=== PATIENT | female | born 1985 | race Caucasian/White ===

== ENCOUNTER → 2017-01-24 | Outpatient (CLI) | payer BC, OTHER ==
[~2017-01-24] MED LIST: CLR10 PO; LEVO25TA5 PO; MISC-696; MTR600X PO; OXYC-57 PO; PRENTAB26 PO
[2017-01-24 12:42] LABS: HEMATOCRIT 33.6 % (37-47)
[2017-01-24 13:31] LABS: THYROID STIMULATING HORMONE 1.1 uIu/ml (0.300-4.500)
[2017-01-24 13:50] LABS: GTGD 50 Grams
== END | disposition home or self-care (01) ==
LOC: C.LAB1850 11:01
PROVIDERS: ATTEND Obstetrics & Gynecology
DX: O99.280 Endocrine, nutritional and metabolic diseases complicating pregnancy, unspecified trimester (principal); O09.90 Supervision of high risk pregnancy, unspecified, unspecified trimester

== ENCOUNTER → 2017-01-24 | Outpatient (CLI) | payer BC, OTHER ==
[2017-01-24 15:18] LABS: URINE APPEARANCE CLEAR (CLEAR); URINE BILIRUBIN NEG (NEG); URINE COLOR YELLOW; URINE EPITHELIAL CELL AUTO >30 /lpf (0-5); URINE NITRITE NEG (NEG); URINE PH 7.5 (4.5-7.5); UROBILINOGEN NEG (NEG)
[2017-01-24 15:20] LABS: MANUAL MICROSCOPIC REQUIRED? NO; REVIEW REQ? NO
== END | disposition home or self-care (01) ==
LOC: C.LABSPEC 14:02
PROVIDERS: ATTEND Obstetrics & Gynecology
DX: O09.90 Supervision of high risk pregnancy, unspecified, unspecified trimester (principal)

== ENCOUNTER → 2017-01-30 | Outpatient (CLI) | payer BC, OTHER | END | disposition home or self-care (01) | LOC: C.LAB1850 09:27 | PROVIDERS: ATTEND Obstetrics & Gynecology | DX: O28.9 Unspecified abnormal findings on antenatal screening of mother (principal) ==

== ENCOUNTER → 2017-02-21 | Outpatient (CLI) | payer BC, OTHER ==
[2017-02-21 18:32] LABS: THYROID STIMULATING HORMONE 1.03 uIu/ml (0.300-4.500)
== END | disposition home or self-care (01) ==
LOC: C.LAB1850 16:46
PROVIDERS: ATTEND Obstetrics & Gynecology
DX: O99.280 Endocrine, nutritional and metabolic diseases complicating pregnancy, unspecified trimester (principal); Z3A.00 Weeks of gestation of pregnancy not specified

== ENCOUNTER → 2017-03-21 | Outpatient (CLI) | payer BC, OTHER | END | disposition home or self-care (01) | LOC: C.LABSPEC 17:39 | PROVIDERS: ATTEND Obstetrics & Gynecology | DX: O09.90 Supervision of high risk pregnancy, unspecified, unspecified trimester (principal) ==

== ENCOUNTER 2017-04-04 04:25 | Inpatient (IN) | payer BC, OTHER ==
[~2017-04-04] VITALS: Ht 160 cm; Wt 100.5 kg
[2017-04-04] VITALS (18 sets, daily range): BP systolic 98–110; BP diastolic 58–78; PULSE 75–94; TEMP 36.5–36.7; O2SAT 97–100; Ht 160 cm; Wt 100.5 kg
[2017-04-04] MEDS ORDERED: LACTATED RINGER'S 1000ML 1,000 ML IV ONE (04:37)
[2017-04-04] MEDS ORDERED: LACTATED RINGER'S 1000ML 1,000 ML IV PRN (04:37)
[2017-04-04] MEDS ORDERED: LACTATED RINGER'S 1000ML 1,000 ML IV SCH ×2 (04:37→06:46)
[2017-04-04] MEDS ORDERED: CITRIC ACID/SODIUM CITRATE 15 ML UDC PO ONE (04:45)
[2017-04-04 04:58] LABS: HEMATOCRIT 32.9 % (37-47); MEAN CELL VOLUME 89.4 fL (80-100); MEAN CORPUSCULAR HEMOGLOBIN 31.3 pg (25-34); MEAN PLATELET VOLUME 10.3 fL (7.4-10.4); PLATELET COUNT 232 K/uL (130-400); RED BLOOD COUNT 3.68 M/uL (4.2-5.4); WHITE BLOOD COUNT 13.17 K/uL (4.8-10.8)
[2017-04-04] MEDS ORDERED: FENTANYL CITRATE INJ 50 MCG/1 ML 2 ML VIAL ONE (05:02)
[2017-04-04] MEDS ORDERED: MoRPHine SULFATE PF 1 MG/ML 10 ML AMP/VIAL ONE (05:02)
--- NOTE | 2017-04-04 05:03 | History & Physical Bridge Note ---
H&P Re-Evaluation Bridge Note: I have examined the patient, reviewed the History & Physical and in the interval since the performance of the History & Physical I have noted the following changes of clinical significance: No changes noted. H&P dictated.
[2017-04-04] MEDS ORDERED: CEFAZOLIN IV 2,000 MG in DEXTROSE 5% 50ML 50 ML IV STA (05:06)
[2017-04-04] MEDS ORDERED: LEVO25TA5 PO (05:09)
[2017-04-04] MEDS ORDERED: CLR10 PO (05:09)
[2017-04-04] MEDS ORDERED: PRENTAB26 PO (05:09)
[2017-04-04] MEDS ORDERED: OXYTOCIN INJ 10 UNITS/ML VIAL ONE ×3 (05:14→05:59)
[2017-04-04] MEDS ORDERED: EpHEDrine SULFATE INJ 50 MG/ML AMP ONE (05:14)
[2017-04-04] MEDS ORDERED: EpHEDrine SULFATE INJ 50 MG/ML AMP IV PRN (05:30)
[2017-04-04] MEDS ORDERED: ONDANSETRON INJ 2 MG/ML 2 ML VIAL IV PRN ×3 (05:30→23:30)
[2017-04-04] MEDS ORDERED: ACETAMINOPHEN 1000 MG/100 ML IV IV ONE (05:30)
[2017-04-04] MEDS ORDERED: ATROPINE SULFATE 0.1 MG/ML 5ML SYR IV PRN (05:30)
[2017-04-04] MEDS ORDERED: METHYLERGONOVINE MALEATE 0.2 MG/ML AMP ONE (06:00)
[2017-04-04] MEDS ORDERED: DiphenhydrAMINE HCL 50 MG/ML VIAL ONE (06:44)
--- NOTE | 2017-04-04 06:45 | [facility] Post Operative Brief Note ---
Immediate Operative Summary Operative Date Apr 04, 2017. Pre-Operative Diagnosis Term ; History of Section times three; Spontaneous labor Post-Operative Diagnosis Term ; History of Section times three; Spontaneous labor Procedure(s) Performed Repeat Section for delivery of live male child at 0557 Surgeon Printing Supplies Sales Representative Surgeon(s) Dr. Hoover Estimated Blood Loss 700cc Findings Viable male , cephalic presentation. Apgars 9/10. Weight 7#12. Normal appearing uterus, tubes, ovaries. Adhesions of peritoneum to uterus. Specimens Placenta (Hold) Cord Blood Cord Gases Drains espinoza, clear yellow Anesthesia spinal Complication(s) None Disposition L&D
[2017-04-04] MEDS ORDERED: OXYTOCIN INJ 30 UNITS in LACTATED RINGER'S 1000ML 1,000 ML IV SCH (06:46)
[2017-04-04] MEDS ORDERED: LANOLIN OINT EXT PRN ×2 (07:00)
[2017-04-04] MEDS ORDERED: BENZOCAINE 20% AER SPR 82.5 GM CAN EXT PRN (07:00)
[2017-04-04] MEDS ORDERED: SUPERCREAM 0.870 % 15GM JAR EXT PRN (07:00)
[2017-04-04] MEDS ORDERED: HYDROCORTISONE ACETATE 25 MG SUPP PR PRN (07:00)
[2017-04-04] MEDS ORDERED: MAGNESIUM HYDROXIDE SUSP 30 ML UDC PO PRN (07:00)
[2017-04-04] MEDS ORDERED: NALOXONE HCL INJ 0.08 MG in SYRINGE 1.8 ML IV PRN (07:05)
[2017-04-04] MEDS ORDERED: NALOXONE HCL INJ 1 MG in SODIUM CHLORIDE 0.9% 1000ML 1,000 ML IV PRN (07:05)
[2017-04-04] MEDS ORDERED: SODIUM CHLORIDE 0.9% 1000ML 1,000 ML IV PRN (07:05)
[2017-04-04] MEDS ORDERED: LACTATED RINGER'S 1000ML 500 ML IV PRN (07:05)
[2017-04-04] MEDS ORDERED: NO NARCOTICS OR SEDATIVES SCH (07:15)
[2017-04-04] MEDS ORDERED: MEPERIDINE HCL 25 MG/ML CARP IV PRN (07:15)
[2017-04-04] MEDS ORDERED: PROMETHAZINE HCL INJ 25 MG in SODIUM CHLORIDE 0.9% 50ML 50 ML IV PRN ×2 (07:15→23:30)
[2017-04-04] MEDS ORDERED: MoRPHine SULFATE PF 1 MG/ML 10 ML AMP/VIAL EPI PRN (07:15)
[2017-04-04] MEDS ORDERED: DiphenhydrAMINE HCL 50 MG/ML VIAL IV PRN ×2 (07:15→23:30)
[2017-04-04] MEDS ORDERED: NALBUPHINE HCL INJ 10 MG/ML AMP IV PRN (07:15)
[2017-04-04] MEDS ORDERED: NALOXONE HCL 0.4 MG/1 ML VIAL/CARP IV PRN (07:15)
--- NOTE | 2017-04-04 07:23 | Anesthesiology Progress Note ---
Anesthesia Post Op Note Date & Time Apr 04, 2017 at 07:22 Notes Mental Status: alert / awake / arousable, participated in evaluation Pt Amnestic to Procedure: Yes Nausea / Vomiting: adequately controlled Pain: adequately controlled Airway Patency, RR, SpO2: stable & adequate BP & HR: stable & adequate Hydration State: stable & adequate Neuraxial Anesthesia: was administered, sensory block is resolving Anesthetic Complications: no major complications apparent
--- NOTE | 2017-04-04 08:04 | HISTORY & PHYSICAL EXAMINATION ---
DATE OF ADMISSION: 04/04/2017 CHIEF COMPLAINT: Spontaneous labor. HISTORY OF PRESENT ILLNESS: The patient is a 31-year-old G4, P3-0-0-3 at 38 weeks 3 days, who presented after a large gush of clear fluid and contractions approximately every 8 minutes, per patient. Positive movement, no vaginal bleeding. complicated by a history of section x3, hypothyroidism, Rh negative status, group B strep carrier. PAST MEDICAL HISTORY: Migraines, depression, no medication, hypothyroidism and seasonal and environmental allergies. PAST SURGICAL HISTORY: 1. section x3. 2. Laparoscopy noting bowel and colon were adhered 3. Cholecystectomy. SOCIAL HISTORY: Denies tobacco, alcohol and drug use. REVIEW OF SYSTEMS: Negative, except as discussed above. FAMILY HISTORY: Noncontributory. MEDICATIONS: 1. Levothyroxine 25 mcg. 2. vitamins 3. Loratadine 10 mg. 4. Albuterol as needed. 5. Folic acid. 6. Vitamin D. ALLERGIES: ADVAIR DISKUS AND PENICILLIN, BOTH CAUSING A RASH. PHYSICAL EXAMINATION: VITAL SIGNS: Stable, afebrile. GENERAL: Awake, alert and oriented x3, no acute distress. HEART: Regular rate rhythm, S1, S2, no murmurs, gallops or rubs. LUNGS: Clear to auscultation bilaterally. ABDOMEN: Gravid, soft, nontender to palpation. EXTREMITIES: No edema, no calf tenderness. STERILE VAGINAL EXAM: Cervix is 4 cm dilated, 70% effaced, -1 station. heart tracing category 1. LABORATORY DATA: Blood type O-negative with negative antibodies, rubella immune, VDRL nonreactive, hepatitis B and HIV negative. Gonorrhea and chlamydia negative. Anatomy complete, cell-free DNA screening negative. One-hour glucose test 137 with 2-hour test normal negative. Group B strep positive. ASSESSMENT: 1. A 31-year-old G4, P3-0-0-3 at 38 weeks and 3 days. 2. Spontaneous labor. 3. History of section x3. PLAN: We will prepare patient for repeat section.
[2017-04-04] MEDS: SIMETHICONE 80 MG CHEW PO SCH ×4 (09:00→19:38)
[2017-04-04] MEDS ORDERED: KETOROLAC TROMETHAMINE 30 MG/ML VIAL IV STA (09:48)
--- NOTE | 2017-04-04 09:52 | OPERATIVE REPORT ---
DATE OF OPERATION: 04/04/2017 PREOPERATIVE DIAGNOSES: 1. 38-week gestation. 2. History of section x3. 3. Spontaneous labor with spontaneous rupture of membranes. 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 PROCEDURE: Repeat low transverse section. SURGEON: Gabby Rodriguez DO. MATERIALS HANDLER: Emmy Hoover MD. ESTIMATED BLOOD LOSS: 700 mL FINDINGS: Viable male in a cephalic presentation, Apgars 9 and 10, weight 7 pounds 12 ounces. Normal-appearing uterus, tubes and ovaries. Adhesions in the peritoneum to uterus. SPECIMENS: Placenta, cord blood and cord gases. DRAINS: Velez, clear yellow. ANESTHESIA: Spinal. COMPLICATIONS: None. DISPOSITION: Stable and good to labor and delivery. INDICATIONS FOR PROCEDURE: The patient is a 31-year-old G4, P 3-0-0-3, at 38+ weeks' gestation, who presented in spontaneous labor. Her previous cervical exam in the office was 1 cm of dilation and on arrival she was feeling regular contractions plus had large gush of clear fluid with positive Nitrazine testing and cervical dilation to 4 cm. She was recommended for section. Informed consent was discussed and obtained, and the patient elected to proceed with section. DESCRIPTION OF PROCEDURE: The patient was taken to the operating room where spinal anesthesia was administered, 2 g of Ancef was infused preoperatively. She was prepared and draped in the usual sterile fashion in the supine position with a leftward tilt. Timeout was confirmed. The Pfannenstiel incision was made with a scalpel and carried through to the underlying layer of the fascia with both sharp and blunt and cautery dissection. The fascia was nicked at midline with the Bovie, and using Bovie over hemostat technique, this incision was extended bilaterally. The superior aspect of the fascial incision was grasped with Tawnya clamps x2, elevated off the underlying rectus abdominis muscles and dissected. In a similar fashion, the inferior aspect of the incision was also dissected. The rectus abdominis muscles were scored with the Bovie and . The peritoneum was entered with a hemostat and this incision was extended both bluntly and with Bovie dissection. The bladder blade was placed. Adhesions were noted from the peritoneum to the uterus. These were taken down with Metzenbaum scissors and the bladder flap was created. The uterine incision was made with a scalpel and extended cephalad-caudad manually. The was delivered from a cephalic presentation, nuchal cord x1 easily reduced. The head delivered, followed by the anterior followed by the posterior shoulders. A spontaneous cry was heard in the field. The cord was doubly clamped and cut, and the baby was handed to the awaiting semiconductor lab technician. A cord segment was obtained. Cord blood was obtained. The placenta was delivered spontaneously intact with a 3-vessel cord. During delivery of the placenta, the uterus incidentally inverted, this was easily reduced. Pitocin was given due to uterine atony. Methergine was given directly into the myometrium of the uterus. The uterus then became firm. The hysterotomy incision was reapproximated with 0 Vicryl in a running locked stitch, a second layer of the same suture was used to imbricate the hysterotomy incision. The uterus was returned to the abdomen. [id number] sutures of 2-0 Vicryl were used at the hysterotomy site to obtain excellent hemostasis and a small piece of Gelfoam was used to further aid in hemostasis. Excellent hemostasis was then observed. The fascial incision was reapproximated with 0 Vicryl in a running stitch. Two layers of 2-0 plain gut suture were used to reapproximate the subcutaneous tissue and then the skin was reapproximated using 4-0 Vicryl in a subcuticular running stitch. Steri-Strips and dressing were applied. The patient was then taken back to her room in stable and good condition. I attest to the content of the Intraoperative Record and any orders documented therein. Any exception s are noted below.
[2017-04-04] MEDS: LEVOTHYROXINE 25 MCG TAB PO SCH (10:47)
[2017-04-04] MEDS: DOCUSATE SODIUM 100 MG CAP PO SCH ×2 (12:34→19:38)
[2017-04-04] MEDS: LORATADINE 10 MG TAB PO SCH (12:35)
[2017-04-04] MEDS ORDERED: OXYCODONE/ACETAMINOPHEN 5-325 TAB PO PRN (23:30)
[2017-04-04] MEDS ORDERED: KETOROLAC TROMETHAMINE 30 MG/ML VIAL IV. PRN (23:30)
[2017-04-04] MEDS ORDERED: DC INTRASPINAL MORPHINE ONE (23:30)
[2017-04-05] MEDS: IBUPROFEN 600 MG TAB PO PRN ×3 (00:39→19:35)
[2017-04-05] MEDS: OXYCODONE/ACETAMINOPHEN 5-325 TAB PO PRN ×4 (00:39→19:35)
[2017-04-05 03:00] VITALS: BP 105/67; PULSE 79; TEMP 36.6; O2SAT 98
--- NOTE | 2017-04-05 06:31 | OB/GYN Progress Note ---
INORGANIC CHEMIST Progress Note Date of Service Apr 05, 2017. Subjective conversation w/ patient, physical exam, chart review, lab review Ambulation: ambulating normally Voiding: no voiding problems Passing Gas: Yes Diet Tolerance: Regular Diet Lochia: Small Feeding Type: Breast Feeding Pain: mild pain Review of Systems Constitutional: No fever Respiratory: No shortness of breath Cardiac: No chest pain Abdomen: No nausea, No vomiting Female : No dysuria Objective Vital Signs Date Time Temp Pulse Resp B/P (MAP) Pulse Ox O2 Delivery O2 Flow Rate FiO2 04/05/17 03:00 36.6 79 20 105/67 (80) 98 Room Air 04/04/17 23:45 99 Room Air 04/04/17 23:45 36.6 94 18 103/71 (82) 99 Room Air 04/04/17 23:45 18 99 04/04/17 22:30 18 100 04/04/17 21:30 18 100 04/04/17 20:30 16 98 04/04/17 20:15 36.7 90 18 108/58 (75) 98 Room Air 04/04/17 19:30 18 99 04/04/17 18:30 18 100 04/04/17 17:30 16 98 04/04/17 16:30 18 98 04/04/17 15:45 97 Room Air 04/04/17 15:45 36.6 77 16 98/66 (77) 97 Room Air 04/04/17 15:30 16 97 04/04/17 14:30 20 97 04/04/17 13:30 20 98 04/04/17 12:30 16 97 04/04/17 12:00 36.6 80 20 110/75 (87) 97 Room Air 04/04/17 11:30 20 97 04/04/17 10:30 20 100 04/04/17 10:30 36.7 78 22 103/78 (86) 99 Room Air 04/04/17 09:30 100 Room Air 04/04/17 09:30 20 100 04/04/17 09:30 36.5 75 20 109/67 (81) 100 Room Air 04/04/17 09:30 100 Room Air Physical Exam General Appearance: WELL-APPEARING Respiratory/Chest: lungs clear, normal breath sounds, no respiratory distress Cardiovascular: regular rate, rhythm Abdomen: normal bowel sounds, non tender, soft Fundus: Firm, Relation to Umbilicus (2 below U) Incision Description: Clean, Dry & Intact Extremities: non-tender, no pedal edema Laboratory Results Last 24 Hours Test 04/05/17 06:16 Medications Current Inpatient Medications Medications (Trade) Dose Ordered Sig/Tu Route Start Time Stop Time Status Last Admin Dose Admin Lactated Ringer's 1,000 ml @ 125 mls/hr Q8H IV 04/04/17 04:37 04/06/17 04:36 04/04/17 15:35 125 MLS/HR Lactated Ringer's 1,000 ml @ 999 mls/hr Q1H1M PRN IV 04/04/17 04:37 05/04/17 04:36 Levothyroxine Sodium (Synthroid Tab) 25 mcg DAILYBB PO 04/04/17 07:30 05/04/17 07:29 04/04/17 10:47 25 MCG Loratadine (Claritin Tab) 10 mg DAILY PO 04/04/17 08:00 05/04/17 07:59 04/04/17 12:35 10 MG Oxytocin 30 units/ Lactated Ringer's 1,003 ml @ 125 mls/hr Q8H2M IV 04/04/17 06:46 05/04/17 06:45 04/04/17 07:12 125 MLS/HR Lactated Ringer's 1,000 ml @ 125 mls/hr Q8H IV 04/04/17 06:46 05/04/17 06:45 Ketorolac Tromethamine (Toradol Inj) 30 mg Q6H PRN IV. 04/04/17 23:30 04/09/17 23:29 Oxycodone/ Acetaminophen (Percocet 5-325mg Tab) 1 tab Q4H PRN PO 04/04/17 23:30 04/18/17 23:29 04/05/17 00:39 1 TAB Oxycodone/ Acetaminophen (Percocet 5-325mg Tab) 2 tab Q4H PRN PO 04/04/17 23:30 04/18/17 23:29 Ibuprofen (Motrin Tab) 600 mg Q4H PRN PO 04/04/17 07:00 05/04/17 06:59 04/05/17 00:39 600 MG Promethazine HCl 25 mg/Sodium Chloride 51 ml @ 204 mls/hr Q4H PRN IV 04/04/17 23:30 05/04/17 23:29 Ondansetron HCl (Zofran Inj) 4 mg Q4H PRN IV 04/04/17 23:30 05/04/17 23:29 Bisacodyl (Dulcolax Tab) 5 mg HS ONCE PO 04/05/17 22:00 04/05/17 22:01 Bisacodyl (Dulcolax Supp) 10 mg PRN PRN [place] 04/06/17 07:00 05/06/17 06:59 Docusate Sodium (coLACE CAP) 100 mg BID PO 04/04/17 08:00 05/04/17 07:59 04/04/17 19:38 100 MG Magnesium Hydroxide (Milk Of Magnesia Susp) 30 ml HS PRN PO 04/04/17 07:00 05/04/17 06:59 Cocaine HCl (Supercream 0.870% Cr) BID PRN EXT 04/04/17 07:00 04/18/17 06:59 Lanolin (Lanolin Oint) PRN PRN EXT 04/04/17 07:00 05/04/17 06:59 Hydrocortisone Acetate (Anusol Hc Supp) 25 mg BID PRN [place] 04/04/17 07:00 05/04/17 06:59 Benzocaine (Dermoplast Aero Spr) 1 appln PRN PRN EXT 04/04/17 07:00 05/04/17 06:59 Simethicone (Mylicon Chew Tab) 80 mg QID PO 04/04/17 09:00 05/04/17 08:59 04/04/17 19:38 80 MG Diphenhydramine HCl (Benadryl Cap) 25 mg QID PRN PO 04/04/17 23:30 05/04/17 23:29 Diphenhydramine HCl (Benadryl Inj) 25 mg QID PRN IV 04/04/17 23:30 05/04/17 23:29 Assessment and Plan Post-Op Day Number: 1 Continue Routine Care: A/P: This is a 31 y/o female, , POD#1 s/p repeat (3x) . She is ambulating and clinically stable. Plan: - Vitals signs are reviewed and WNL (Tmax 36.7 ) - Last Hgb is 11.5 (04/04). This AM pending - Blood type O-, GBS pos, Rubella Immune - Routine post operative care - Encourage ambulation, monitor and control pain with medication as needed, continue with regular diet as tolerated and monitor lochia - Stool softeners and sitz bath recommended - Encourage breast feeding and educate about breast feeding Resident Physician Supervision Note: I interviewed and examined the patient. Discussed with Dr. Colin and agree with findings and plan as documented in the note. Any exceptions or clarifications are listed here: Doing well. She would like early d/c later. Will reevaluate later for that possibility. Documented By: Emmy Hoover Resident Involvement: Resident Care Provided Care Provided: OB Delivery
[2017-04-05 06:37] LABS: BASO % 0.2 %; BASO ABS # 0.02 K/uL (0-0.2); COMPLETE YES; EOS % 1.8 %; IG% 0.2 %; LYMPH % 21.4 %; LYMPH ABS # 1.96 K/uL (1.2-3.4); MEAN CELL VOLUME 91.5 fL (80-100); MEAN CORPUSCULAR HEMOGLOBIN 29.3 pg (25-34); MEAN CORPUSCULAR HGB CONC 32.1 g/dl (32-36); MEAN PLATELET VOLUME 9.8 fL (7.4-10.4); MONO % 6.5 %; NEUT % 69.9 %; PLATELET COUNT 208 K/uL (130-400); RED BLOOD COUNT 3.17 M/uL (4.2-5.4); WHITE BLOOD COUNT 9.14 K/uL (4.8-10.8)
[2017-04-05] MEDS: LORATADINE 10 MG TAB PO SCH (07:51)
[2017-04-05] MEDS: DOCUSATE SODIUM 100 MG CAP PO SCH ×2 (07:51→19:34)
[2017-04-05] MEDS: SIMETHICONE 80 MG CHEW PO SCH ×4 (07:51→19:35)
[2017-04-05] MEDS: LEVOTHYROXINE 25 MCG TAB PO SCH (07:51)
--- NOTE | 2017-04-05 07:53 | Discharge Instructions ---
Discharge Instructions Date of Service Apr 05, 2017. Admission Reason for Admission: Spontaneous Rupture Of Membranes Discharge Discharge Diagnosis / Problem: after delivery Discharge Goals Goal(s): Routine recovery after delivery Medications Continue Dispensed Medications: supercream, dermaplast, tucks, lansinoh Activity Recommendations Activity Limitations: per Instructions/Follow-up section . Instructions / Follow-Up Instructions / Follow-Up ACTIVITY RECOMMENDATIONS: * Gradual return to full activity over the next 2-3 weeks. * No lifting - nothing heavier than baby over the next 2-3 weeks. * Do not engage in vigorous exercise, sexual activity or sports until cleared by your physician. * Do not drive or operate any motorized equipment until cleared by your physician. * You may shower/bathe daily. MEDICATIONS: For discomfort or pain, you may use Acetaminophen (Tylenol), Ibuprofen (Advil), or Naproxen (Aleve) following the package directions. For constipation you may use Colace following the package directions. BREAST CARE: If you are not breast feeding: * Wear a supportive bra 24 hours a day for one to two weeks. * Avoid stimulating your breasts and nipples as much as possible during the first few weeks after delivery. * When taking a shower, have the warm water hit your back, not breasts. * When your breasts feel full, apply ice packs. Usually three to four times a day helps ease the discomfort. * Take a mild pain medication (Tylenol / Motrin) when you are uncomfortable. If breast feeding: * Use breast milk to lubricate nipples. Lansinoh cream may be used for sore nipples. You do not need to remove cream prior to breast feeding. If using a different brand of cream, check the label for directions regarding removal of cream prior to nursing. * Wear a supportive bra. * If having problems with breasts or breast feeding, call a collection systems consultant or your health care provider. SPECIAL CARE INSTRUCTIONS: When you are discharged from the hospital, it is important for you to follow the instructions listed below: * During the first week at home, you should be able to care for yourself and your baby. In addition, the usual light household activities are encouraged. * Limit your activities to the way you feel. Do not try to clean the house or move furniture. Be sensible. * If you actively engage in sports and have done so up until the time of your delivery, you may resume these activities as soon as you feel able. This may take up to one month or even longer. Use good judgment. * Continue to take your vitamins for at least six weeks after the of your baby. * Your diet need not be limited unless you were on a special diet before your delivery. Breast-feeding mothers need around 2500 calories per day and at least 64-80 ounces of fluid per day (8 to 10 glasses). * You should eat foods from the four major food groups. Crash diets or fad diets are to be avoided. Eating lean meats, fresh fruits and vegetables, low-fat dairy products, high fiber foods and a regular exercise program, will help you get back to your pre- weight without putting your health at risk. * Constipation is sometimes a problem after delivery. Take a mild laxative as needed. If breast feeding, Milk of Magnesia is acceptable to use. You may use a suppository or Fleets enema. * A daily shower or tub bath is suggested. Wash incision daily with warm soapy water and pat dry. It doesn't need to be covered unless drainage is present. * A bloody vaginal discharge will usually continue until around four weeks . A small amount of bleeding may continue for as long as six weeks. Vaginal discharge changes from the bright red bleeding after delivery to pink then brownish and finally yellowish-pink before becoming white and disappearing. * Bleeding may increase with activity. Your first period may come in 4-8 weeks. If you are breast feeding, your period may be delayed even longer. * Pulcifer (sex) can begin whenever both you and your partner feel comfortable and do not have any form of genital infection. It is recommended that you wait at least six weeks for internal and external healing to occur. If you have questions, please talk to your health care practitioner. A condom should be used to prevent infection and . * Foreplay, gentle intercourse and lubrication is very important the first several times to prevent pain. A water-based lubricant such as K-Y jelly or Astroglide may be used. * If you have RH negative blood and your baby is RH positive, you will receive RHOGAM by injection prior to discharge. The nurse will give you a card to keep with you that has the date and place that you received RHOGAM after delivery. * During your care, you had a Rubella screen done to check for the presence of rubella antibodies in your blood. If your test was negative, you will receive a Rubella vaccine prior to discharge. This vaccine may cause a fever, soreness at the injection site and flu-like symptoms. If these symptoms persist, notify your health care practitioner. is not advised for one month after a Rubella vaccine. * Verbalizes understanding of car seat law as reviewed with patient nursing. * Car Seat hand-out given and reviewed with patient by nursing. * Shaken baby information reviewed with patient by nursing. Call you doctor if: * Heavy bleeding (saturating several pads an hour) or passing clots the size of your fist. * A fever >101 degrees F (38.3 degrees C) on two occasions four hours apart and /or chills. * Unusual pain in the pelvic or vaginal areas. * Call the doctor for any increased redness, drainage or swelling around the incision and any pain unrelieved by prescribed pain medication. * "Baby Blues" lasting longer than two weeks. If you have any questions or concerns, call your health care practitioner at . FOLLOW UP VISIT: * Please call the office at to schedule a 6 week examination. It is important you keep this appointment. It is important for you to make arrangements for either yearly or twice yearly check-ups thereafter. Current Hospital Diet Patient's current hospital diet: Regular Diet Discharge Diet Recommended Diet: Regular Diet Procedures Procedures Performed: Repeat Section for delivery of live male child at 0557 Pending Studies Studies pending at discharge: no Medical Emergencies . Who to Call and When: Medical Emergencies: If at any time you feel your situation is an emergency, please call [phone] immediately. . Non-Emergent Contact Non-Emergency issues call your: Residential Insurance Inspector . . "Provider Documentation" section prepared by Zafar Colin. . VTE Core Measure Inpt VTE Proph given/why not?: SCD's
[2017-04-05 08:43] VITALS: BP 107/72; PULSE 96; TEMP 36.9
[2017-04-05 15:30] VITALS: BP 118/73; PULSE 93; TEMP 36.6
[2017-04-05] MEDS ORDERED: OXYC-57 PO (17:27)
[2017-04-05] MEDS ORDERED: MTR600X PO (17:27)
[2017-04-05] MEDS ORDERED: TRIAMCINOLONE ACET 0.1% CR 80 GM TUBE EXT PRN (20:45)
[2017-04-05] MEDS ORDERED: BISACODYL 5 MG TABEC PO ONE (22:00)
[2017-04-05 23:00] VITALS: BP 124/79; PULSE 89; TEMP 36.6; O2SAT 98
[2017-04-06] MEDS: OXYCODONE/ACETAMINOPHEN 5-325 TAB PO PRN ×2 (00:38→06:21)
[2017-04-06] MEDS: IBUPROFEN 600 MG TAB PO PRN ×2 (00:38→06:21)
--- NOTE | 2017-04-06 06:24 | OB/GYN Progress Note ---
REAL ESTATE MANAGER Progress Note Date of Service Apr 06, 2017. Subjective conversation w/ patient, physical exam, chart review, lab review Ambulation: ambulating normally Voiding: no voiding problems Passing Gas: Yes Diet Tolerance: Regular Diet Lochia: Small Feeding Type: Breast Feeding Pain: mild pain Notes: had BM Review of Systems Constitutional: No fever Respiratory: No shortness of breath Cardiac: No chest pain Abdomen: No nausea, No vomiting Female : No dysuria Objective Vital Signs Date Time Temp Pulse Resp B/P (MAP) Pulse Ox O2 Delivery O2 Flow Rate FiO2 04/05/17 23:00 36.6 89 20 124/79 (94) 98 Room Air 04/05/17 23:00 98 Room Air 04/05/17 15:30 36.6 93 16 118/73 (88) Room Air 04/05/17 15:30 Room Air 04/05/17 08:43 36.9 96 20 107/72 (84) Room Air 04/05/17 08:43 Room Air Physical Exam General Appearance: WELL-APPEARING Respiratory/Chest: lungs clear, normal breath sounds, no respiratory distress Cardiovascular: regular rate, rhythm Abdomen: normal bowel sounds, non tender, soft Fundus: Firm, Relation to Umbilicus (2 below U) Extremities: non-tender, no pedal edema Laboratory Results Last Resulted 04/05/17 06:16 Red Blood Count 3.17, Mean Corpuscular Volume 91.5, Mean Corpuscular Hemoglobin 29.3, Mean Corpuscular Hemoglobin Concent 32.1, Mean Platelet Volume 9.8, Neutrophils (%) (Auto) 69.9, Lymphocytes (%) (Auto) 21.4, Monocytes (%) (Auto) 6.5, Eosinophils (%) (Auto) 1.8, Basophils (%) (Auto) 0.2, Neutrophils # (Auto) 6.39, Lymphocytes # (Auto) 1.96, Monocytes # (Auto) 0.59, Eosinophils # (Auto) 0.16, Basophils # (Auto) 0.02 Medications Current Inpatient Medications Medications (Trade) Dose Ordered Sig/Tu Route Start Time Stop Time Status Last Admin Dose Admin Lactated Ringer's 1,000 ml @ 999 mls/hr Q1H1M PRN IV 04/04/17 04:37 05/04/17 04:36 Levothyroxine Sodium (Synthroid Tab) 25 mcg DAILYBB PO 04/04/17 07:30 05/04/17 07:29 04/05/17 07:51 25 MCG Loratadine (Claritin Tab) 10 mg DAILY PO 04/04/17 08:00 05/04/17 07:59 04/05/17 07:51 10 MG Oxytocin 30 units/ Lactated Ringer's 1,003 ml @ 125 mls/hr Q8H2M IV 04/04/17 06:46 05/04/17 06:45 04/04/17 07:12 125 MLS/HR Lactated Ringer's 1,000 ml @ 125 mls/hr Q8H IV 04/04/17 06:46 05/04/17 06:45 Ketorolac Tromethamine (Toradol Inj) 30 mg Q6H PRN IV. 04/04/17 23:30 04/09/17 23:29 Oxycodone/ Acetaminophen (Percocet 5-325mg Tab) 1 tab Q4H PRN PO 04/04/17 23:30 04/18/17 23:29 04/06/17 00:38 1 TAB Oxycodone/ Acetaminophen (Percocet 5-325mg Tab) 2 tab Q4H PRN PO 04/04/17 23:30 04/18/17 23:29 Ibuprofen (Motrin Tab) 600 mg Q4H PRN PO 04/04/17 07:00 05/04/17 06:59 04/06/17 00:38 600 MG Promethazine HCl 25 mg/Sodium Chloride 51 ml @ 204 mls/hr Q4H PRN IV 04/04/17 23:30 05/04/17 23:29 Ondansetron HCl (Zofran Inj) 4 mg Q4H PRN IV 04/04/17 23:30 05/04/17 23:29 Bisacodyl (Dulcolax Supp) 10 mg PRN PRN [place] 04/06/17 07:00 05/06/17 06:59 Docusate Sodium (coLACE CAP) 100 mg BID PO 04/04/17 08:00 05/04/17 07:59 04/05/17 19:34 100 MG Magnesium Hydroxide (Milk Of Magnesia Susp) 30 ml HS PRN PO 04/04/17 07:00 05/04/17 06:59 Cocaine HCl (Supercream 0.870% Cr) BID PRN EXT 04/04/17 07:00 04/18/17 06:59 Lanolin (Lanolin Oint) PRN PRN EXT 04/04/17 07:00 05/04/17 06:59 Hydrocortisone Acetate (Anusol Hc Supp) 25 mg BID PRN [place] 04/04/17 07:00 05/04/17 06:59 Benzocaine (Dermoplast Aero Spr) 1 appln PRN PRN EXT 04/04/17 07:00 05/04/17 06:59 Simethicone (Mylicon Chew Tab) 80 mg QID PO 04/04/17 09:00 05/04/17 08:59 04/05/17 19:35 80 MG Diphenhydramine HCl (Benadryl Cap) 25 mg QID PRN PO 04/04/17 23:30 05/04/17 23:29 Diphenhydramine HCl (Benadryl Inj) 25 mg QID PRN IV 04/04/17 23:30 05/04/17 23:29 Triamcinolone Acetonide (Triamcinolone Acet 0.1% Crm) 1 appln TID PRN EXT 04/05/17 20:45 05/05/17 20:44 04/05/17 22:05 1 APPLN Assessment and Plan Post-Op Day Number: 2 Continue Routine Care: Resident Physician Supervision Note: I interviewed and examined the patient. Discussed with Dr. Colin and agree with findings and plan as documented in the note. Any exceptions or clarifications are listed here: [None] Documented By: Cayla Ley Radha A/P: This is a 31 y/o female, , POD#2 s/p repeat (3x) . She is ambulating and clinically stable. Plan: - Vitals signs are reviewed and WNL (Tmax 36.9 ) - Last Hgb is 9.3 (04/05). - Blood type O-, GBS pos, Rubella Immune - Routine post operative care - Encourage ambulation, monitor and control pain with medication as needed, continue with regular diet as tolerated and monitor lochia - Stool softeners and sitz bath recommended - Encourage breast feeding and educate about breast feeding Resident Involvement: Resident Care Provided Care Provided: OB Delivery
[2017-04-06] MEDS ORDERED: BISACODYL 10 MG SUPP PR PRN (07:00)
[2017-04-06] MEDS: LORATADINE 10 MG TAB PO SCH (07:24)
[2017-04-06] MEDS: LEVOTHYROXINE 25 MCG TAB PO SCH (07:24)
[2017-04-06] MEDS: DOCUSATE SODIUM 100 MG CAP PO SCH (07:24)
[2017-04-06] MEDS: SIMETHICONE 80 MG CHEW PO SCH ×2 (07:25→12:33)
[2017-04-06 07:47] VITALS: BP 98/64; PULSE 88; TEMP 36.6
[2017-04-06 09:45] VITALS: O2SAT 99
[2017-04-06 15:00] VITALS: BP_DIAS 64; PULSE 88; TEMP 36.6
[2017-04-06] MEDS ORDERED: MISC-696 (15:15)
--- NOTE | 2017-04-23 21:44 | Discharge Summary ---
Discharge Summary Date of Service Apr 23, 2017. Discharge Summary Admission Date: Apr 04, 2017 at 04:39 Discharge Date: Apr 06, 2017 Discharge Disposition: Home Principal Diagnosis: s/p section Procedures: repeat section Consultations: anesthesia Medication Reconciliation New Medications: Misc. Devices (Breast Pump) 1 Mis Mis EA, #1 Ibuprofen (Ibuprofen) 600 Mg Tab 600 MG PO Q4H PRN for Pain, GARCIA, Cramping, or Fever, #60 TAB 3 Refills Oxycodone/Acetaminophen 5MG/325MG (Percocet 5MG/325MG) Tab 1 TAB PO Q4H PRN for Pain - Pain Scale 1-5, #30 TAB 0 Refills PAIN Continued Medications: Levothyroxine Sodium (Levothyroxine Sodium) 25 Mcg Tab 1 TAB PO DAILY for 30 Days, #30 TAB 5 Refills Loratadine (Claritin) 10 Mg Tab 10 MG PO DAILY, TAB Multivit/Min/Iron/Fol Ac/Pren ( Vitamin) Tab 1 TAB PO DAILY, TAB Hospital Course Scheduled repeat section. Postop course unremarkable. Total Time Spent: Less than 30 minutes This includes examination of the patient, discharge planning, medication reconciliation, and communication with other providers. Discharge Instructions Please refer to the electronic Patient Visit Report (Discharge Instructions) for additional information. Follow-Up office 2 weeks
== END 2017-04-06 15:20 | disposition home or self-care (01) | DRG 766 ==
LOC: C.OPB 04:25 → C.LD 04:27 → C.OPB 04:40 → C.OBG 09:21
PROVIDERS: ADMIT Obstetrics & Gynecology; ATTEND Obstetrics & Gynecology
PROC: 0DNW0ZZ Release Peritoneum, Open Approach (ICD-10-PCS; principal; 2017-04-04 05:27)
PROC: 10D00Z1 Extraction of Products of Conception, Low, Open Approach (ICD-10-PCS; principal; 2017-04-04 05:27)
DX: O42.92 Full-term premature rupture of membranes, unspecified as to length of time between rupture and onset of labor (principal); Z37.0 Single live birth; O99.284 Endocrine, nutritional and metabolic diseases complicating childbirth; E03.9 Hypothyroidism, unspecified; O99.824 Streptococcus B carrier state complicating childbirth; K66.0 Peritoneal adhesions (postprocedural) (postinfection); O99.52 Diseases of the respiratory system complicating childbirth; J30.2 Other seasonal allergic rhinitis; O99.214 Obesity complicating childbirth; E66.9 Obesity, unspecified; O34.211 Maternal care for low transverse scar from previous cesarean delivery; N85.8 Other specified noninflammatory disorders of uterus; Z67.41 Type O blood, Rh negative; Z79.899 Other long term (current) drug therapy; Z3A.38 38 weeks gestation of pregnancy; Z68.39 Body mass index [BMI] 39.0-39.9, adult

== ENCOUNTER 2022-09-04 22:01 | Inpatient (IN) ==
[2022-09-04] MEDS ORDERED: OXYTOCIN 30 UNITS/500 ML BAG IV PRN (22:27)
[2022-09-04] MEDS ORDERED: LACTATED RINGER'S 1,000 ML IV PRN (22:27)
[2022-09-04] MEDS ORDERED: LIDOCAINE 1% LOCAL 20 ML VIAL INFIL PRN (22:27)
[2022-09-04] MEDS ORDERED: LACTATED RINGER'S 1,000 ML IV SCH (22:30)
[2022-09-04] MEDS ORDERED: CITRIC ACID/SODIUM CITRATE 15 ML UDC PO STA (22:43)
--- NOTE | 2022-09-04 22:44 | History & Physical Report ---
Date of Service September 04, 2022 Assessment & Plan (1) Previous delivery affecting , antepartum: Plan: Admit to L&D. EFM/toco. Labs. Given ROM (grossly ruptured and + nitrizine), and contractions - will proceed to OR for as soon as possible for urgent . Reviewed consent - risks, benefits, alternatives. Aware of increased risks of scar tissue, damage to surrounding organs/tissues/baby, need for further surgery, risk of hemorrhage, blood clots, infection, pneumonia. Informed consent obtained. Admission and Anticipated Discharge Date Admission Date: September 04, 2022 History of Present Illness Chief Complaint: rupture of membranes Primary Care Provider: Joey Velazquez 37yo @ 40 , presented to L&D after spontaneous rupture of membranes at 8:45 pm tonight for clear fluid. She is not really feeling contractions. + movement. No vaginal bleeding. and Delivery Plans AMA Weekly NST's @ 36 weeks Obesity (BMI 40 and higher @ beginning of ) *Growth US @ 32wks *Weekly NSTs @ 34wks *BMI 40 or greater offer detailed/level II anatomy at [facility] Hypothyroid *Check TFTs Q4wks Prior c-sections x 4 C/S SCHEDULED FOR 09/14/[address] MONTGOMERY AND DR[address] ALBARADO ASSIST Need for Rhogam d/t Rh negative mother Rhogam given 06/30/22 - [place] GDM w/16wk glucola *Begin monthly Growth US's @24wks Polydramnios at 28 weeks--> resolved GBS Positive in Urine *Treat in Labor Allergies Allergy/AdvReac Type Severity Reaction Status Date / Time fluticasone Allergy Unknown Headache Verified 09/04/22 22:12 Penicillins Allergy Unknown rash Verified 09/04/22 22:12 salmeterol Allergy Unknown rash Verified 09/04/22 22:12 Home Medications Medication Instructions Recorded Confirmed Type montelukast [Singulair] PO 02/01/22 08/30/22 History omeprazole magnesium [Acid Document Management Consultant 40 mg PO DAILY 02/01/22 09/04/22 History (omeprazole)] prenat.vits,yossi,[id number] 1 tab PO DAILY 02/07/22 09/04/22 History acetone (urine) test (Ketone Urine #50 ea 05/11/22 08/30/22 Rx Test strips) blood sugar diagnostic (OneTouch #150 ea 05/11/22 08/30/22 Rx Verio test strips) blood-glucose meter (OneTouch #1 ea 05/11/22 08/30/22 Rx Verio Reflect Meter) lancets 33 gauge (OneTouch Delica #150 ea 05/11/22 08/30/22 Rx Lancets) Patient History Medical History History of chicken pox Ovarian cyst Surgical History S/P section x 4 S/P cholecystectomy S/P laparoscopy Family History (Updated 02/01/22 @ 13:11 by Neli Sheppard) Grandfather (Maternal) No problems noted. Grandmother (Maternal) Diabetes Stroke Denies family history of Ovarian cancer Breast cancer Colorectal cancer Social History (Updated 02/01/22 @ 13:12 by Neli Sheppard) Smoking Status: Former smoker marital status: marital status details: carlos Warner (34) [phone] Current Living Situation: Spouse and Family Current Living Situation Comment: lives with spouse, 4 children, dog current occupational status: unemployed current occupation: homemaker Review of Systems All systems reviewed & are unremarkable except as noted in HPI & below Physical Exam Physical Exam: FHT Cat 1 [place] Q 2-3 min SVE 2/50/-2 Constitutional: WD/WN, vitals as above Respiratory: no respiratory distress Cardiovascular: Rate/Rhythm: regular rhythm and + tachycardic Gastrointestinal (Abdomen): Inspection/Auscultation: abdomen normal to inspection Percussion/Palpation: abdomen soft; abdomen nontender Gravid. No s/s chorio or abruption. Skin: no rashes, warm and dry Psychiatric: A+Ox3, euthymic affect Results & Data ([facility]) Vital Signs (Past 12 Hours) Vital Signs Pulse BP Pulse Ox 09/04/22 22:41 98 09/04/22 22:41 113 H 09/04/22 22:08 133 H 141/89 H Coding Level of Care Code None Diagnoses Previous delivery affecting , antepartum O34.219
[2022-09-04] MEDS ORDERED: MoRPHine SULFATE PF 1 MG/ML 10 ML AMP/VIAL ONE (22:48)
[2022-09-04] MEDS ORDERED: PHENYLEPHRINE HCL 10 MG/ML VIAL ONE (22:48)
[2022-09-04] MEDS ORDERED: fentaNYL citrate 100 MCG/2 ML VIAL ONE (22:48)
[2022-09-04] MEDS ORDERED: OXYTOCIN 10 UNITS/ML 10ML VIAL ONE (22:48)
[2022-09-04] MEDS ORDERED: BUPIVACAINE/DEXTROSE 0.75%-8.25% 2 ML AMP IT ONE (22:48)
[2022-09-04] MEDS ORDERED: KETOROLAC 30 MG/ML VIAL ONE (22:48)
[2022-09-04] MEDS ORDERED: ONDANSETRON INJ 2 MG/ML 2 ML VIAL ONE (22:48)
[2022-09-04 23:03] LABS: Hematocrit (blood only) 31.9 % (34.1-44.9); Hemoglobin 10.9 g/dl (12.0-16.0); Mean Corpuscular Hgb Conc 34.2 g/dL (32.0-36.0); Mean Corpuscular Volume 87.9 fL (80.0-100.0); Platelet Count 222 K/uL (130-400); RDW Coefficient of Variation 13.6 % (11.5-14.5); RDW Standard Deviation 43.8 fL (36.4-46.3); Red Blood Count 3.63 M/uL (3.93-5.22); White Blood Count 16.36 K/ul (4.8-10.8)
--- NOTE | 2022-09-04 23:05 | Anesthesiology Consultation ---
Date of Service September 04, 2022 Assessment & Plan (1) Encounter for pre-operative examination: Chart Review Chart Review: Acceptable Risk for Surgery and Patient NOT seen in Pre Admission Testing Consults Requested none History Height/Weight Height: 5 ft 2 in Weight: 112.945 kg Allergies Allergy/AdvReac Type Severity Reaction Status Date / Time fluticasone Allergy Unknown Headache Verified 09/04/22 22:12 Penicillins Allergy Unknown rash Verified 09/04/22 22:12 salmeterol Allergy Unknown rash Verified 09/04/22 22:12 Medications Home Medications Medication Instructions Recorded Confirmed Last Taken montelukast [Singulair] PO 02/01/22 08/30/22 Unknown omeprazole magnesium [Acid House Parent 40 mg PO DAILY 02/01/22 09/04/22 09/03/22 21:00 (omeprazole)] prenat.vits,yossi,bmn-dpob-pdoba 1 tab PO DAILY 02/07/22 09/04/22 09/03/22 21:00 acetone (urine) test (Ketone Urine #50 ea 05/11/22 08/30/22 Unknown Test strips) blood sugar diagnostic (OneTouch #150 ea 05/11/22 08/30/22 Unknown Verio test strips) blood-glucose meter (OneTouch #1 ea 05/11/22 08/30/22 Unknown Verio Reflect Meter) lancets 33 gauge (OneTouch Delica #150 ea 05/11/22 08/30/22 Unknown Lancets) albuterol 90 mcg/actuation aerosol 90 mcg inhalation Q4H PRN Wheezing 09/04/22 09/04/22 Unknown inhaler cetirizine 10 mg tablet (Zyrtec) 10 mg PO DAILY 09/04/22 09/04/22 09/03/22 21:00 mometasone-formoterol HFA 50 mcg-5 2 puff inhalation BID 09/04/22 09/04/22 09/03/22 21:00 mcg/actuation aerosol inhaler (Dulera) Active Medications Generic Name Dose Route Start Last Admin Trade Name Freq PRN Reason Stop Dose Admin Lactated Ringer's 1,000 mls @ 999 mls/hr 09/04/22 22:30 09/04/22 22:53 Lr IV 09/04/22 23:30 999 mls/hr .Q1H1M AMTIAS Administration Past Medical History Medical History History of chicken pox Ovarian cyst Past Family History Family History Grandfather (Maternal) No problems noted. Grandmother (Maternal) Diabetes Stroke Denies family history of Ovarian cancer Breast cancer Colorectal cancer Past Surgical History Surgical History S/P section x 4 S/P cholecystectomy S/P laparoscopy Social History Smoking Status: Former smoker tobacco type: cigarettes Smoking End Date: 14 years ago Hx Alcohol Use: No Hx Substance Use: No substance use type: does not use Physical Exam Vital Signs Last Vital Signs Temp 99.5 F 09/04/22 22:13 Pulse 104 H 09/04/22 23:01 Resp 20 09/04/22 22:13 BP 141/89 H 09/04/22 22:13 Pulse Ox 98 09/04/22 23:01 Testing Laboratory Results 09/04/22 22:41 09/04/22 22:59 POC Glucose 101 H
[2022-09-04 23:22] LABS: Albumin Globulin Ratio 1.1 (0.9-2); Albumin Level 3.3 gm/dl (3.4-5.0); BUN Creatinine Ratio 10.6 (10-20); Bilirubin,Total 0.3 mg/dl (0.2-1.0); Creatinine Clr Calc Pharmacy 109.7 ml/min; Est GFR (African American) 102.9 ml/min; Est GFR (Non-African American) 88.8 ml/min; Globulin 3.1 gm/dl (2.5-4.0); Potassium 3.9 mmol/L (3.5-5.1); Total Protein 6.4 gm/dl (6.0-8.3)
[2022-09-05] MEDS ORDERED: LACTATED RINGER'S 500 ML IV PRN (00:25)
[2022-09-05] MEDS ORDERED: NALBUPHINE HCL INJ 10 MG/ML AMP IV PRN (00:25)
[2022-09-05] MEDS ORDERED: MoRPHine SULFATE PF 1 MG/ML 10 ML AMP/VIAL INT SPINAL ONE (00:25)
[2022-09-05] MEDS ORDERED: HYDROmorphone INJ 0.5 MG/0.5 ML SYR IV PRN (00:25)
[2022-09-05] MEDS ORDERED: PROMETHAZINE HCL 25 MG in SODIUM CHLORIDE 0.9% 50 ML IV PRN ×2 (00:25→18:25)
[2022-09-05] MEDS ORDERED: ACETAMINOPHEN 1,000 MG/100 ML VIAL IV PRN (00:25)
[2022-09-05] MEDS ORDERED: NALOXONE HCL 1 MG in SODIUM CHLORIDE 0.9% 1000ML 1,000 ML IV PRN (00:25)
[2022-09-05] MEDS ORDERED: NALOXONE HCL 0.4 MG/1 ML VIAL/CARP IV PRN (00:25)
[2022-09-05] MEDS ORDERED: NALOXONE HCL 0.08 MG in SYRINGE 1.8 ML IV PRN (00:25)
[2022-09-05] MEDS ORDERED: ePHEDrine sulfate 50 MG/ML AMP IV PRN (00:25)
[2022-09-05] MEDS ORDERED: diphenhydrAMINE 50 MG/ML VIAL IV PRN ×2 (00:25→18:25)
[2022-09-05] MEDS ORDERED: ONDANSETRON INJ 2 MG/ML 2 ML VIAL IV PRN ×2 (00:25→18:25)
[2022-09-05] MEDS ORDERED: KETOROLAC 30 MG/ML VIAL IV PRN ×2 (00:25→18:25)
[2022-09-05] MEDS ORDERED: DC INTRASPINAL MORPHINE SCH (00:30)
[2022-09-05] MEDS ORDERED: SODIUM CHLORIDE 0.9% 1000ML 1,000 ML IV SCH (00:30)
[2022-09-05] MEDS ORDERED: NO NARCOTICS OR SEDATIVES SCH (00:30)
[2022-09-05 01:07] LABS: Base Excess Cord Arterial Bld -3.8 mEq/L (-9-1.8); CO2 Cord Arterial Blood 61 mmHg (39.1-73.5); HCO3 Cord Arterial Blood 25 mmol/L (19.7-28.5); Oxygen Sat Cord Arterial Blood < 60.0 % (<60); PO2 Cord Arterial Blood 12 mmHg (4.1-31.7); pH Cord Arterial Blood 7.22 (7.1-7.38)
[2022-09-05 01:08] LABS: Base Excess Cord Venous Blood -2.2 mEq/L (-7.7-1.9); Cord Venous Blood HCO3 24 mmol/L (18.4-26.8); Cord Venous Blood PCO2 47 mmHg (30.4-57.2); Cord Venous Blood PO2 20 mmHg (14.1-43.3); Cord Venous Blood pH 7.32 (7.20-7.44); O2 Saturation Cord Venous Bld < 60.0 % (<68)
[2022-09-05] MEDS ORDERED: SENNA 8.6 MG TAB PO PRN (01:25)
[2022-09-05] MEDS ORDERED: HYDROCORTISONE ACETATE 25 MG SUPP PR PRN (01:25)
[2022-09-05] MEDS ORDERED: DIPHTHERIA/TETANUS/PERTUSSIS 0.5mL SYR/VIAL (Age 7+yrs) IM ONE (01:25)
[2022-09-05] MEDS ORDERED: MAGNESIUM HYDROXIDE SUSP 30 ML UDC PO PRN (01:25)
[2022-09-05] MEDS ORDERED: BENZOCAINE 20% AER SPR 82.5 GM CAN EXT PRN (01:25)
--- NOTE | 2022-09-05 01:26 | Operative Report ---
PG Post Operative Report Pre & Post Diagnosis Operation Date: 09/04/22 23:30 Pre-Op Diagnosis: 1. History of section x4 2. 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 Specimens placenta, cord blood, cord gas. Drains espinoza, clear yellow Anesthesia Type Spinal Complications none Disposition Accompanied Patient To Recovery: Yes Disposition: L&D Indications 37yo @ 40 08/26, presented to L&D in labor with contractions and SROM. History of x 4. Description of Procedure The patient was seen in her labor and delivery room, risks benefits and alternatives to surgery were reviewed. Informed consent obtained. Questions were answered. She was taken to the operating room, spinal anesthesia was administered. She was then prepared and draped in the usual sterile fashion in the supine position with a leftward tilt. Timeout was confirmed. A Pfannenstiel skin incision was made with a scalpel, and carried through to the underlying layer of fascia. Fascia was nicked at midline, and this incision was extended bilaterally. The superior aspect of the fascial incision was grasped with Tawnya clamps x2, elevated off the underlying rectus abdominis muscles, and dissected sharply and bluntly. In similar fashion, the inferior aspect of the fascial incision was dissected. The rectus abdominis muscles were , and the peritoneum was entered using hemostats. This was extended carefully, as uterus was adhered to the anterior peritoneum. These adhesions were taken down. Using a new scalpel, a low transverse uterine incision was created. Clear amniotic fluid noted. The infant was delivered from a cephalic presentation with assist (single pull) of the Kiwi vacuum. The head delivered, followed by shoulders and body. Spontaneous cry on the field. No nuchal. The cord was doubly clamped and cut, and the was handed off to the waiting glove factory sewer. A segment was retained for cord gases. Cord blood was obtained. The placenta was delivered spontaneously intact. The uterus was exteriorized, and cleared of all clots and debris. The hysterotomy incision was reapproximated using 0 Vicryl in a running locked stitch. A second layer of the same suture was used to imbricate the incision. Posterior uterus was evaluated and normal. The uterus was returned to the abdomen, and gutters were cleared of clots and debris. Excellent hemostasis was observed. The fascial incision was reapproximated using 0 Vicryl in a running stitch. The subcutaneous tissue was irrigated, and reapproximated using 2-0 plain gut in a running stitch. The skin was reapproximated using 4-0 Vicryl in a running subcuticular stitch. Jelani dressing applied. The patient tolerated the procedure well, and will be taken to the recovery area in stable and good condition. Sponge, instrument, needle counts correct x 2. I attest to the content of the Intraoperative Record and any orders documented therein. Any exceptions are noted below. OB Procedure Charges 09721
[2022-09-05] MEDS ORDERED: LACTATED RINGER'S 1,000 ML IV SCH (01:30)
--- NOTE | 2022-09-05 01:39 | Anesthesiology Progress Note ---
Date of Service September 05, 2022 Anesthesia Post Procedure Vital Signs Vital Signs: Temp Pulse Resp BP Pulse Ox 09/04/22 22:13 99.5 F 133 H 20 141/89 H 09/05/22 01:35 93 H 98 09/05/22 01:33 96 H 120/79 09/05/22 01:30 101 H 100 09/05/22 01:25 103 H 99 09/05/22 01:23 105 H 123/64 09/05/22 01:20 97 H 99 09/05/22 01:17 115 H 91 09/05/22 01:14 103 H 100 09/05/22 01:09 97 H 99 09/05/22 01:10 95 H 108/58 L 09/04/22 23:31 98 09/04/22 23:31 110 H 09/04/22 23:26 97 09/04/22 23:26 103 H 09/04/22 23:21 98 09/04/22 23:21 102 H 09/04/22 23:16 97 09/04/22 23:16 105 H 09/04/22 23:11 98 09/04/22 23:11 108 H 09/04/22 23:06 98 09/04/22 23:06 106 H 09/04/22 23:01 98 09/04/22 23:01 104 H 09/04/22 22:56 95 09/04/22 22:56 119 H 09/04/22 22:51 97 09/04/22 22:51 122 H 09/04/22 22:46 96 09/04/22 22:46 124 H 09/04/22 22:41 98 09/04/22 22:41 113 H 09/04/22 22:08 133 H 141/89 H Transfer of Care Handoff Completed per policy Notes Mental Status: alert / awake / arousable and participated in evaluation Patient Amnestic to Procedure: Yes Nausea / Vomiting: adequately controlled Pain: adequately controlled Airway Patency, RR, SpO2: stable & adequate BP & HR: stable & adequate Hydration State: stable & adequate Neuraxial Anesthesia: was administered and sensory block is resolving Anesthetic Complications: no major complications apparent and Pt Satisfied with anesthetic care
[2022-09-05] MEDS: OXYTOCIN 30 UNITS in LACTATED RINGER'S 1,000 ML IV SCH ×2 (02:07→11:07)
[2022-09-05] MEDS ORDERED: ALBUTEROL HFA 8 GM INHALER INH PRN (02:55)
[2022-09-05] MEDS: SIMETHICONE 80 MG CHEW PO SCH ×4 (07:24→21:11)
[2022-09-05] MEDS: DOCUSATE SODIUM 100 MG CAP PO SCH ×2 (07:24→21:11)
[2022-09-05] MEDS: PANTOprazole 40 MG TAB PO SCH (07:25)
[2022-09-05] MEDS: CETIRIZINE HCL 10 MG TABLET PO SCH (07:25)
[2022-09-05] MEDS: FERROUS SULFATE 325 MG TAB PO SCH (07:25)
[2022-09-05] MEDS: PRENATAL VITAMIN 1 TAB PO SCH (07:26)
[2022-09-05] MEDS: FLUTICASONE/VILANTEROL 100/25MCG 14 PUFFS/INHALER INH SCH (07:26)
[2022-09-05] MEDS ORDERED: diphenhydrAMINE Capsule 25 MG CAP PO PRN (18:25)
[2022-09-06] MEDS: IBUPROFEN 600 MG TAB PO PRN ×5 (03:18→20:44)
--- NOTE | 2022-09-06 06:42 | Obstetrical Progress Note ---
Date of Service <Lashell Aranda MD - Last Filed: 09/06/22 08:24> September 06, 2022 Assessment & Plan <Lashell Aranda MD - Last Filed: 09/06/22 08:24> (1) care following delivery: 37yo @ 40 0/7, presented to L&D after spontaneous rupture of membranes now POD1 after repeat c/s. Tolerating PO. Encourage ambulation. Satisfactory post- progress. <Mckayla Billingsley MD, FACOG - Last Filed: 09/06/22 08:46> (1) care following delivery: Subjective <Lashell Aranda MD - Last Filed: 09/06/22 08:24> Ambulation: ambulating normally Voiding: no voiding problems Passing Gas:: Yes Diet Tolerance:: regular diet Lochia:: Small Feeding Type:: breast feeding Physical Exam <Lashell Aranda MD - Last Filed: 09/06/22 08:24> Constitutional WD/WN, vitals as above Respiratory normal respiratory effort, lungs clear to auscultation Cardiovascular RRR, no murmur, no edema Extremities: no calf tenderness Psychiatric A+Ox3, euthymic affect Genitourinary OB Exam Abdomen: + fundal height (@ the level of the umbilicus) Fundus: + firm no strike through Results & Data ([facility]) <Lashell Aranda MD - Last Filed: 09/06/22 08:24> Vital Signs (Past 12 Hours) Vital Signs Temp Pulse Resp BP Pulse Ox O2 Del Method 09/05/22 23:10 36.8 C 96 H 20 110/70 98 Room Air 09/05/22 20:15 Room Air 09/05/22 20:15 36.7 C 89 20 106/72 97 Room Air <Mckayla Billingsley MD, FACOG - Last Filed: 09/06/22 08:46> Co-Signing Physician Notes Resident Physician Supervision Note: I was present with Dr. Aranda during the history and exam. I discussed the case with the resident and agree with the findings and plan as documented in the note. Any exceptions or clarifications are listed here: [None] Documented By: Mckayla Billingsley MD, FACOG Resident Activity Tracking <Lashell Aranda MD - Last Filed: 09/06/22 08:24> Resident Involvement: Resident Care Provided Care Provided: OB Delivery
[2022-09-06 07:20] LABS: Basophils # (auto) 0.03 K/uL (0-0.2); Basophils % (auto) 0.2 %; Eosinophils # (auto) 0.17 K/uL (0-0.50); Eosinophils % (auto) 1.3 %; Hematocrit (blood only) 26.2 % (34.1-44.9); Hemoglobin 8.7 g/dl (12.0-16.0); Immature Granulocytes # (auto) 0.08 K/uL (0.00-0.02); Immature Granulocytes % (auto) 0.6 %; Lymphocytes # (auto) 2.55 K/uL (1.2-3.4); Lymphocytes % (auto) 20.1 %; Mean Corpuscular Hemoglobin 29.9 pg (25.0-34.0); Mean Corpuscular Hgb Conc 33.2 g/dL (32.0-36.0); Mean Platelet Volume 10.6 fL (9.4-12.3); Monocytes # (auto) 0.72 K/uL (0.24-0.82); Monocytes % (auto) 5.7 %; Neutrophils # (auto) 9.15 K/uL (1.4-6.5); Neutrophils % (auto) 72.1 %; Platelet Count 220 K/uL (130-400); RDW Coefficient of Variation 13.7 % (11.5-14.5); RDW Standard Deviation 44.5 fL (36.4-46.3); Red Blood Count 2.91 M/uL (3.93-5.22)
[2022-09-06] MEDS: FERROUS SULFATE 325 MG TAB PO SCH (08:17)
[2022-09-06] MEDS: DOCUSATE SODIUM 100 MG CAP PO SCH ×2 (08:18→20:44)
[2022-09-06] MEDS: PRENATAL VITAMIN 1 TAB PO SCH (08:18)
[2022-09-06] MEDS: CETIRIZINE HCL 10 MG TABLET PO SCH (08:18)
[2022-09-06] MEDS: SIMETHICONE 80 MG CHEW PO SCH ×4 (08:18→20:44)
[2022-09-06] MEDS: PANTOprazole 40 MG TAB PO SCH (08:18)
[2022-09-06] MEDS: FLUTICASONE/VILANTEROL 100/25MCG 14 PUFFS/INHALER INH SCH (08:19)
[2022-09-06] MEDS ORDERED: bisacodyL 5 MG TABEC PO SCH (20:00)
[2022-09-06] MEDS: oxyCODONE/ACETAMINOPHEN 5mg/325mg TAB PO PRN (20:45)
[2022-09-07] MEDS ORDERED: bisacodyL 10 MG SUPP PR PRN (01:21)
[2022-09-07] MEDS: oxyCODONE/ACETAMINOPHEN 5mg/325mg TAB PO PRN ×2 (05:36→11:03)
[2022-09-07] MEDS: IBUPROFEN 600 MG TAB PO PRN (05:37)
--- NOTE | 2022-09-07 06:09 | Obstetrical Progress Note ---
Date of Service <Lashell Aranda MD - Last Filed: 09/07/22 06:31> September 07, 2022 Assessment & Plan <Lashell Aranda MD - Last Filed: 09/07/22 06:31> (1) care following delivery: 37yo @ 40 0/7, presented to L&D after spontaneous rupture of membranes now POD2 after repeat c/s. Tolerating PO. Encourage ambulation. Satisfactory post- progress. <Arelis Gilmore MD - Last Filed: 09/07/22 08:00> (1) care following delivery: Subjective <Lashell Aranda MD - Last Filed: 09/07/22 06:31> Ambulation: ambulating normally Voiding: no voiding problems Passing Gas:: Yes Diet Tolerance:: regular diet Lochia:: Small Feeding Type:: breast feeding Physical Exam <Lashell Aranda MD - Last Filed: 09/07/22 06:31> Constitutional WD/WN, vitals as above Respiratory normal respiratory effort, lungs clear to auscultation Cardiovascular RRR, no murmur, no edema Extremities: no calf tenderness Psychiatric A+Ox3, euthymic affect Genitourinary OB Exam Abdomen: + fundal height (@ the level of the umbilicus) Fundus: + firm Results & Data ([facility]) <Lashell Aranda MD - Last Filed: 09/07/22 06:31> Vital Signs (Past 12 Hours) Vital Signs Temp Pulse Resp BP Pulse Ox O2 Del Method 09/07/22 00:15 36.8 C 93 H 18 97/64 L 97 Room Air 09/06/22 20:25 Room Air 09/06/22 20:25 36.7 C 96 H 18 109/65 97 Room Air <Arelis Gilmore MD - Last Filed: 09/07/22 08:00> Co-Signing Physician Notes Resident Physician Supervision Note: I interviewed and examined the patient. Discussed with Dr. Aranda and agree with findings and plan as documented in the note. Any exceptions or clarifications are listed here: POD2 s/p rLTCS, doing well. VSS, exam benign and wnl. Jelani dressing changed per prior providers, incision c/d/i prior to replacement. Desires d/c home today, will send message to be seen on POD7 for removal in office. Documented By: Arelis Gilmore MD Resident Activity Tracking <Lashell Aranda MD - Last Filed: 09/07/22 06:31> Resident Involvement: Resident Care Provided Care Provided: OB Delivery
[2022-09-07 06:54] LABS: Hematocrit (blood only) 25.4 % (34.1-44.9); Hemoglobin 8.5 g/dl (12.0-16.0)
[2022-09-07] MEDS: DOCUSATE SODIUM 100 MG CAP PO SCH (09:31)
[2022-09-07] MEDS: FERROUS SULFATE 325 MG TAB PO SCH (09:31)
[2022-09-07] MEDS: SIMETHICONE 80 MG CHEW PO SCH (09:31)
[2022-09-07] MEDS: PRENATAL VITAMIN 1 TAB PO SCH (09:31)
[2022-09-07] MEDS: CETIRIZINE HCL 10 MG TABLET PO SCH (10:09)
[2022-09-07] MEDS: PANTOprazole 40 MG TAB PO SCH (10:10)
[2022-09-07] MEDS: FLUTICASONE/VILANTEROL 100/25MCG 14 PUFFS/INHALER INH SCH (10:11)
== END 2022-09-07 11:45 | disposition home or self-care (01) | DRG 788 ==
LOC: OPB 22:01 → 4S1 22:03 → 4E2 09-05 03:59